=== PATIENT | female | born 1990 | race Caucasian/White ===

== ENCOUNTER 2018-04-08 05:55 | Inpatient (IN) | payer OTHER ==
[2018-04-08] MEDS ORDERED: ceFOXitin 2 GM IVPREMIX* 2 GM/50 ML BAG IVPB ONE (07:30)
[2018-04-08] MEDS ORDERED: Morphine PF AMP (0.5MG/ML)* 5 MG/10 ML AMP ONE (07:38)
[2018-04-08] MEDS ORDERED: OXYTOCIN* 10 UNITS/ML 1 ML VIAL ONE (08:15)
[2018-04-08] MEDS ORDERED: Nalbuphine* 20 MG/ML 1 ML VIAL IV PRN (08:19)
[2018-04-08] MEDS ORDERED: Ondansetron INJ* 2 MG/ML VIAL IV PRN (08:19)
[2018-04-08] MEDS ORDERED: oxyCODONE TAB* 5 MG TAB PO PRN (08:19)
[2018-04-08] MEDS ORDERED: DiMENhydriNATE IV* 50 MG/ML VIAL IV PUSH PRN (08:19)
[2018-04-08] MEDS ORDERED: Naloxone* 0.4 MG/ML 1 ML VIAL IV PRN (08:19)
[2018-04-08] MEDS ORDERED: Acetaminophen TAB* 325 MG PO PRN (08:19)
[2018-04-08] MEDS ORDERED: fentaNYL* 50 MCG/ML 2 ML VIAL (100 MCG VIAL) ONE (08:30)
[2018-04-08] MEDS ORDERED: Dibucaine 1% 28.35 GM TUBE PR PRN (15:39)
[2018-04-08] MEDS ORDERED: Witch Hazel PAD* JAR TOPICAL PRN (15:39)
[2018-04-08] MEDS ORDERED: Glycerin ADULT SUPP PR PRN (15:39)
[2018-04-08] MEDS ORDERED: Oxytocin in LR* 20 UNITS/1,000 ML BAG IVPB SCH (16:00)
[2018-04-08] MEDS: Simethicone TAB* 80 MG TAB.CHEW PO SCH ×2 (18:22→19:50)
[2018-04-08] MEDS: Docusate CAP* 100 MG PO SCH (19:50)
[2018-04-08] MEDS ORDERED: oxyCODONE TAB* 5 MG TAB PO ONE (20:10)
[2018-04-09] MEDS ORDERED: oxyCODONE/Acetamin 5/325 MG* TAB PO PRN (00:19)
[2018-04-09] MEDS ORDERED: Acetaminophen TAB* 325 MG PO PRN (00:19)
[2018-04-09] MEDS: oxyCODONE/Acetamin 5/325 MG* TAB PO PRN ×5 (00:53→20:01)
[2018-04-09] MEDS: Ibuprofen TAB* 600 MG PO PRN ×4 (00:53→21:26)
[2018-04-09 07:09] LABS: ABS Basophils 0 10^3/ul (0-0.2); ABS Eosinophils 0 10^3/ul (0-0.6); ABS Lymphocytes 1.2 10^3/ul (1.0-4.8); ABS Monocytes 0.7 10^3/ul (0-0.8); ABS Neutrophils 11.2 10^3/ul (1.5-7.7); ABS Nucleated RBC 0 10^3/ul; Eosinophil % 0.2 % (0-6); Hematocrit 31 % (35-47); Hemoglobin 10.4 g/dl (12.0-16.0); Lymphocyte % 9.1 % (25-47); Mean Corpuscular HGB Conc 34 g/dl (31-36); Mean Corpuscular Hemoglobin 29 pg (27-31); Mean Corpuscular Volume 87 fL (80-97); Mean Platelet Volume 9.2 um3 (7.4-10.4); Nucleated Red Blood Cells % 0.1; Platelet Count 192 10^3/ul (150-450); Red Blood Count 3.56 10^6/ul (4.0-5.4); Red Cell Distribution Width 14 % (10.5-15); White Blood Count 13.2 10^3/ul (3.5-10.8)
[2018-04-09] MEDS: Docusate CAP* 100 MG PO SCH ×3 (08:58→20:01)
[2018-04-09] MEDS: Simethicone TAB* 80 MG TAB.CHEW PO SCH ×4 (08:58→21:14)
[2018-04-09] MEDS ORDERED: Ferrous Gluconate TAB* 324 MG TAB PO SCH (09:00)
[2018-04-10] MEDS: oxyCODONE/Acetamin 5/325 MG* TAB PO PRN (03:07)
--- NOTE | 2018-04-10 05:38 | OP ---
OPERATIVE REPORT: DATE OF OPERATION: 04/08/18 DATE OF : 86 SURGEON: Clari Rosales MD BUILDER BEAM: 1. Sharee Coffey MD 2. Emiliana Davies CM ANESTHESIOLOGIST: Dr. Prather ANESTHESIA: Spinal. PRE-OP DIAGNOSES: Intrauterine at 37 and 5/7 weeks, preeclampsia, and footling breech. POST-OP DIAGNOSES: Intrauterine at 37 and 5/7 weeks, preeclampsia, and footling breech, de livered. OPERATIVE PROCEDURE: Primary low transverse section. ESTIMATED BLOOD LOSS: 600 cc. IV FLUIDS: 1700 cc of crystalloid. URINE OUTPUT: 200 mL of clear yellow urine. FINDINGS: Revealed a male ; Apgars 9 at 1 minute, 9 at 5 minutes, weight was 6 pounds 8 ounces . No meconium, no nuchal cord. Placenta manually extracted through vessel cord intact. Normal uter ine cavity without septum or abnormalities appreciated. Normal-appearing tubes and ovaries. COMPLICATIONS: None apparent. DISPOSITION: Stable to recovery room. DESCRIPTION OF PROCEDURE: The patient was placed in dorsal lithotomy position. The abdomen was prepp ed and draped in a sterile standard fashion. Patient was identified with universal protocol and afte r confirming excellent anesthesia, the incision was made 2 fingerbreadths above the pubic symphysis. With the scalpel, this was carried down through to the fascia. Fascia was scored in the midline and extended laterally and superiorly using curved Farrar scissors. The fascia was with blunt a nd sharp dissection superiorly and inferiorly from the linea alba. The peritoneum was then entered b luntly and the peritoneal incision was extended bluntly and sharply while directly visualizing bowel and bladder. Bladder blade was inserted. The lower uterine segment was identified, tented up with a n Argenis. An incision was made with scalpel in the lower uterine segment; this was carried down throu gh to membranes. Amniotomy was created for clear fluid. The incision was extended laterally and sup eriorly using bandage scissors. The infant was found to be footling breech, was delivered. Left karthik ulder was first reduced, then the right shoulder and had delivered spontaneously. Cord was then allo wed to pulse for 60 seconds. Baby was vigorous and the cord was then clamped and then cut and the in rajani was handed off to awaiting linen room attendant. The appropriate cord blood was then obtained. Placen ayanna was then manually extracted. The uterus was exteriorized. The cavity was explored and noted to b e free of any membranes or placental tissue and the uterine cavity itself was noted to have a normal contour without any septums or intrauterine masses. The uterine incision itself was reapproximated i n 2 layers, first layer running locked, second layer running imbricated of 0 Vicryl. Tubes and ovari es noted normal. The uterus was hemostatic and returned intraabdominally. Colic gutters were lavage d. Hemostasis was assured at the hysterotomy site. The peritoneum was then reapproximated using 3-0 Vicryl in a running fashion. Subfascial area was lavaged. Hemostasis assured and the fascia itself was reapproximated using 0 Vicryl x2 in a running fashion. Subcu was lavaged, hemostasis assured an d a subcuticular stitch interrupted was placed x3 given the depth of the subcutaneous tissue was grea ter than 2 cm. The skin was then reapproximated using a 4-0 Monocryl in a subcuticular fashion. Mas tisol and Steri's were applied. All sponge, needle, instrument, and blade counts were correct throug hout the case. The patient tolerated the procedure well and went to the recovery room in stable cond ition. [id number]/[facility] #: [id number]
[2018-04-10] MEDS: Ibuprofen TAB* 600 MG PO PRN (07:48)
[2018-04-10 08:05] VITALS: BP 144/66
[2018-04-10] MEDS: Simethicone TAB* 80 MG TAB.CHEW PO SCH (09:03)
[2018-04-10] MEDS: Docusate CAP* 100 MG PO SCH (09:03)
== END 2018-04-10 11:21 | disposition home or self-care (01) | DRG 766 ==
LOC: MCHOB 05:55
PROVIDERS: ADMIT Obstetrics & Gynecology; ATTEND Obstetrics & Gynecology
PROC: 10D00Z1 Extraction of Products of Conception, Low, Open Approach (ICD-10-PCS; principal; 2018-04-08 07:45)
DX: O14.94 Unspecified pre-eclampsia, complicating childbirth (principal); O32.8XX0 Maternal care for other malpresentation of fetus, not applicable or unspecified; O99.284 Endocrine, nutritional and metabolic diseases complicating childbirth; E07.89 Other specified disorders of thyroid; O99.62 Diseases of the digestive system complicating childbirth; O99.344 Other mental disorders complicating childbirth; E06.3 Autoimmune thyroiditis; F41.9 Anxiety disorder, unspecified; F32.9 Major depressive disorder, single episode, unspecified; K90.0 Celiac disease; Z3A.37 37 weeks gestation of pregnancy; Z37.0 Single live birth
CPT/HCPCS: 36415; 85025; A9270-GY; J0694; J1240; J2590; J3010